=== PATIENT | male | born 1965 | race African-American/Black ===

== ENCOUNTER → 2016-06-23 | Outpatient (CLI) | payer OTHER ==
[2014-11-07 14:35] VITALS: BP 142/77
[~2016-06-23] MED LIST: CLIN300C86 PO; CONTRAST GIVEN MC PRN; DOXY100C2 PO; HYDR-2762 PO; IOHEXOL 240 MG/ML 50ML VIAL. PO ONE; IOHEXOL 300 MG/ML 75 ML VIAL IV ONE
--- NOTE | 2016-06-23 11:25 | RAD ---
EXAM: CT abdomen/pelvis with contrast. HISTORY: Groin abscess. TECHNIQUE: Computed tomography of the abdomen and pelvis was performed after the intravenous administration of 75 mL Omnipaque 300. COMPARISON: 11/04/2014. FINDINGS: Lung windows through the visualized portions of the bases reveal mild atelectasis. Bone windows reveal no suspicious lesions. There is a complicated collection containing gas just proximal to the right inguinal ligament, suggesting a surgical object such as an inguinal plug. It measures 4.5 x 4.0 cm and is similar in appearance to the prior study. There is no significant drainable fluid. The collection has a thick line that extends into the proximal aspect of the inguinal ligament. The overlying inflammation is decreased since the prior study. And overlying skin ulcer may be present. There is mild bladder wall thickening. The prostate is mildly enlarged. There is an anastomotic suture line at the descending/sigmoid junction. The appendix is absent. There is no obstruction. A small umbilical hernia contains only fat. There are multiple small supraumbilical hernias, also containing only fat. The liver, gallbladder, spleen, adrenal glands, pancreas and right kidney are unremarkable. There is a 3 mm calculus in the left kidney. A small cyst measures 5 mm on the left. IMPRESSION: 1. A 4.5 x 4.0 cm is concerning for an infected surgical object. There is no drainable collection. There is surrounding granulation tissue that extends to the skin surface. There is no clear recurrent hernia. 2. Small umbilical and supraumbilical hernias containing only fat. 3. 3 mm left renal calculus. *One or more of the following individualized dose reduction techniques were utilized for this examination: 1. Automated exposure control. 2. Adjustment of the mA and/or kV according to patient size. 3. Use of iterative reconstruction technique.
== END | disposition home or self-care (01) ==
LOC: CT 08:48
PROVIDERS: ATTEND Specialist
DX: L02.214 Cutaneous abscess of groin (principal); R19.00 Intra-abdominal and pelvic swelling, mass and lump, unspecified site; D35.1 Benign neoplasm of parathyroid gland
CPT/HCPCS: 74177; Q9966; Q9967